=== PATIENT | male | born 1955 | race Caucasian/White ===

== ENCOUNTER 2019-08-19 18:31 | Emergency (ER) | payer MEDICAID ==
[~2019-08-19] VITALS: Ht 175.3 cm; Wt 90.0 kg
[2019-08-19] MEDS ORDERED: SODIUM CHLORIDE 0.9% 1,000 ML IV ONE (22:46)
[2019-08-19 23:22] LABS: HEMATOCRIT. 43.5 % (42.0-52.0); HEMOGLOBIN. 15.3 g/dL (14.0-18.0); MEAN CORPUSCULAR HEMOGLOBIN 34.4 pg (28.0-32.0); MEAN CORPUSCULAR VOLUME 97.6 fL (80.0-94.0); PLATELET 131 x1000/uL (130-400); RED BLOOD CELL COUNT 4.45 mill/uL (4.7-6.1); RED CELL DISTRIBUTION WIDTH 12.7 % (11.6-14.6)
[2019-08-19 23:26] LABS: CHLORIDE 105 mEq/L (98-107)
[2019-08-19 23:50] LABS: ETHANOL BLOOD 303 mg/dL
[2019-08-20 00:45] LABS: CLARITY URINE CLEAR (CLEAR); COLOR URINE YELLOW (YELLOW); KETONES URINE NEGATIVE (NEGATIVE); LEUKOCYTE ESTERASE URINE NEGATIVE (NEGATIVE); NITRITE URINE NEGATIVE (NEGATIVE); OCCULT BLOOD URINE NEGATIVE (NEGATIVE); PROTEIN URINE 2+ (NEGATIVE); SPECIFIC GRAVITY URINE 1.009 (1.005-1.030); UROBILINOGEN URINE 0.2 E.U./dL (0.2-1.0)
[2019-08-20 01:06] LABS: *AMPHETAMINES SCREEN URINE NEGATIVE (NEGATIVE); *BARBITURATES SCREEN URINE NEGATIVE (NEGATIVE); *BENZODIAZEPINES SCREEN URINE NEGATIVE (NEGATIVE); *COCAINE SCREEN URINE NEGATIVE (NEGATIVE); CANNABINOID URINE SCREEN NEGATIVE (NEGATIVE)
[2019-08-20 01:07] LABS: METHADONE URINE SCREEN NEGATIVE (NEGATIVE); OPIATES URINE SCREEN NEGATIVE (NEGATIVE); PHENCYCLIDINE URINE SCREEN NEGATIVE (NEGATIVE)
[2019-08-20 02:07] LABS: PLATELET ESTIMATE NORMAL
[2019-08-20] MEDS ORDERED: ONDANSETRON HCL 4MG/2ML INJ IV STA (03:58)
[2019-08-20 05:00] VITALS: BP 154/83
== END 2019-08-20 05:47 | disposition home or self-care (01) ==
LOC: EDBD 18:31 → ER 18:31
DX: F10.129 Alcohol abuse with intoxication, unspecified (principal); Y90.8 Blood alcohol level of 240 mg/100 ml or more; I11.0 Hypertensive heart disease with heart failure; I50.9 Heart failure, unspecified; E11.9 Type 2 diabetes mellitus without complications; R32 Unspecified urinary incontinence; R74.0 Nonspecific elevation of levels of transaminase and lactic acid dehydrogenase [LDH]; Z91.81 History of falling
CPT/HCPCS: 36415; 70450; 80053; 80305; 80320; 81003; 82962; 85025; 96361; 96374; 99284; J2405; J7030; Z7610; G0480

== ENCOUNTER 2019-09-08 16:23 | Emergency (ER) | payer MEDICAID ==
[~2019-09-08] VITALS: Ht 170.2 cm; Wt 90.0 kg
[2019-09-08 18:48] LABS: BASOPHILS % 2.3 % (0.0-2.0); EOSINOPHILS % 1.2 % (0.0-5.0); HEMATOCRIT. 39.4 % (42.0-52.0); HEMOGLOBIN. 13.9 g/dL (14.0-18.0); LYMPHOCYTES % 44.4 % (20.0-50.0); MEAN CORPUSCULAR VOLUME 96.6 fL (80.0-94.0); MEAN PLATELET VOLUME 9.2 fl (7.4-10.4); NEUTROPHILS % 46.1 % (40.0-76.0); RED BLOOD CELL COUNT 4.08 mill/uL (4.7-6.1); RED CELL DISTRIBUTION WIDTH 12.6 % (11.6-14.6)
[2019-09-08 19:00] LABS: CHLORIDE 99 mEq/L (98-107)
[2019-09-08 19:05] LABS: ETHANOL BLOOD 273 mg/dL
[2019-09-08 19:24] LABS: CLARITY URINE CLEAR (CLEAR); COLOR URINE YELLOW (YELLOW); KETONES URINE NEGATIVE (NEGATIVE); LEUKOCYTE ESTERASE URINE NEGATIVE (NEGATIVE); NITRITE URINE NEGATIVE (NEGATIVE); OCCULT BLOOD URINE TRACE (NEGATIVE); PH URINE 5.5 (4.5-8.0); PROTEIN URINE 1+ (NEGATIVE); SPECIFIC GRAVITY URINE 1.003 (1.005-1.030); UROBILINOGEN URINE 0.2 E.U./dL (0.2-1.0)
[2019-09-08 19:42] LABS: *AMPHETAMINES SCREEN URINE NEGATIVE (NEGATIVE); *BARBITURATES SCREEN URINE NEGATIVE (NEGATIVE); *BENZODIAZEPINES SCREEN URINE NEGATIVE (NEGATIVE)
[2019-09-08 19:43] LABS: *COCAINE SCREEN URINE NEGATIVE (NEGATIVE); CANNABINOID URINE SCREEN NEGATIVE (NEGATIVE); OPIATES URINE SCREEN NEGATIVE (NEGATIVE); PHENCYCLIDINE URINE SCREEN NEGATIVE (NEGATIVE)
[2019-09-08 19:45] LABS: METHADONE URINE SCREEN NEGATIVE (NEGATIVE)
[2019-09-08] MEDS ORDERED: ACETAMINOPHEN 500MG TABLET PO NR (20:00)
[2019-09-09 15:54] VITALS: BP 127/60
[2019-09-09 22:43] LABS: PLATELET 47 x1000/uL (130-400)
== END 2019-09-10 07:24 | disposition home or self-care (01) ==
LOC: ER 16:23
DX: R51 Headache (principal); F10.229 Alcohol dependence with intoxication, unspecified; Y90.0 Blood alcohol level of less than 20 mg/100 ml; E11.9 Type 2 diabetes mellitus without complications; I10 Essential (primary) hypertension
CPT/HCPCS: 36415; 80053; 80305; 80320; 81003; 82962; 85025; 99284; G0480

== ENCOUNTER 2019-10-12 19:44 | Emergency (ER) | payer MEDICAID ==
[~2019-10-12] VITALS: Ht 180.3 cm; Wt 90.0 kg
[2019-10-12 19:51] VITALS: BP 138/72
== END 2019-10-12 21:40 | disposition left against medical advice (07) ==
LOC: ER 19:44
DX: F10.129 Alcohol abuse with intoxication, unspecified (principal); Y90.9 Presence of alcohol in blood, level not specified
CPT/HCPCS: 99283

== ENCOUNTER 2019-11-05 19:23 | Emergency (ER) | payer MEDICARE, MEDICAID ==
[~2019-11-05] VITALS: Ht 170.2 cm; Wt 75.0 kg
[2019-11-05 23:11] LABS: CHLORIDE 98 mEq/L (98-107)
[2019-11-05 23:27] LABS: ETHANOL BLOOD 348 mg/dL
[2019-11-05 23:43] LABS: *AMPHETAMINES SCREEN URINE NEGATIVE (NEGATIVE); *BARBITURATES SCREEN URINE NEGATIVE (NEGATIVE); *BENZODIAZEPINES SCREEN URINE NEGATIVE (NEGATIVE); *COCAINE SCREEN URINE NEGATIVE (NEGATIVE); METHADONE URINE SCREEN NEGATIVE (NEGATIVE); OPIATES URINE SCREEN NEGATIVE (NEGATIVE)
[2019-11-05 23:44] LABS: CANNABINOID URINE SCREEN NEGATIVE (NEGATIVE); PHENCYCLIDINE URINE SCREEN NEGATIVE (NEGATIVE)
[2019-11-06 00:08] LABS: BASOPHILS % 2.2 % (0.0-2.0); EOSINOPHILS % 0.7 % (0.0-5.0); HEMATOCRIT. 47.1 % (42.0-52.0); HEMOGLOBIN. 16.7 g/dL (14.0-18.0); LYMPHOCYTES % 49.3 % (20.0-50.0); MEAN CORPUSCULAR HEMOGLOBIN 34.7 pg (28.0-32.0); MEAN CORPUSCULAR VOLUME 97.6 fL (80.0-94.0); MEAN PLATELET VOLUME 9.4 fl (7.4-10.4); MONOCYTES % 3.9 % (2.0-8.0); NEUTROPHILS % 43.9 % (40.0-76.0); PLATELET 87 x1000/uL (130-400); RED BLOOD CELL COUNT 4.83 mill/uL (4.7-6.1); RED CELL DISTRIBUTION WIDTH 13.5 % (11.6-14.6)
[2019-11-06 04:00] VITALS: BP 133/99
== END 2019-11-06 07:00 | disposition home or self-care (01) ==
LOC: ER 19:23
DX: S30.0XXA Contusion of lower back and pelvis, initial encounter (principal); E11.65 Type 2 diabetes mellitus with hyperglycemia; I10 Essential (primary) hypertension; F10.229 Alcohol dependence with intoxication, unspecified; W18.39XA Other fall on same level, initial encounter; Y93.89 Activity, other specified; Y92.89 Other specified places as the place of occurrence of the external cause; Y99.8 Other external cause status; Y90.8 Blood alcohol level of 240 mg/100 ml or more
CPT/HCPCS: 36415; 72100; 80053; 80305; 80320; 85025; 99284; G0480

== ENCOUNTER 2020-05-09 08:09 | Inpatient (IN) | payer MEDICARE, MEDICAID ==
[~2020-05-09] VITALS: Ht 180.3 cm; Wt 72.6 kg
[2020-05-09] MEDS ORDERED: SODIUM CHLORIDE 0.9% 1,000 ML IV ONE ×2 (08:21→10:22)
[2020-05-09 09:00] LABS: BG BASE EXCESS -1.1 mmol/L (-2.0-2.0); BG CARBOXYHEMOGLOBIN 0.7 % (0.5-1.5); BG DEOXYHEMOGLOBIN 2.9 % (0.0-5.0); BG FRACTION INSPIRED OXYGEN 21; BG HCO3 ACT 22.5 mmol/L (22.0-26.0); BG METHEMOGLOBIN 0.3 % (0.0-1.5); BG OXYGEN SATURATION 97.1 % (92.0-98.5); BG OXYHEMOGLOBIN 96.1 % (94.0-97.0); BG PCO2 34.4 mmHg (35.0-45.0); BG PH 7.434 (7.350-7.450); BG PO2 91.3 mmHg (75.0-100.0); BG SAMPLE SITE RIGHT RADIAL; BG TOTAL HEMOGLOBIN 13.6 g/dL (12.0-18.0); BG VENT MODE RA
[2020-05-09 09:16] LABS: BASOPHILS % 0.8 % (0.0-2.0); EOSINOPHILS % 1.7 % (0.0-5.0); HEMATOCRIT. 37.9 % (42.0-52.0); HEMOGLOBIN. 13.2 g/dL (14.0-18.0); LYMPHOCYTES % 19.6 % (20.0-50.0); MEAN CORPUSCULAR HEMOGLOBIN 30.8 pg (28.0-32.0); MEAN CORPUSCULAR VOLUME 88.3 fL (80.0-94.0); MEAN PLATELET VOLUME 9.7 fl (7.4-10.4); MONOCYTES % 5.1 % (2.0-8.0); NEUTROPHILS % 72.8 % (40.0-76.0); PLATELET 118 x1000/uL (130-400); RED BLOOD CELL COUNT 4.29 mill/uL (4.7-6.1); RED CELL DISTRIBUTION WIDTH 15.2 % (11.6-14.6)
[2020-05-09 09:23] LABS: CHLORIDE 93 mEq/L (98-107)
[2020-05-09 09:26] LABS: ETHANOL BLOOD < 10 mg/dL
[2020-05-09 09:35] LABS: CLARITY URINE CLEAR (CLEAR); COLOR URINE YELLOW (YELLOW); KETONES URINE 1+ (NEGATIVE); LEUKOCYTE ESTERASE URINE 1+ (NEGATIVE); NITRITE URINE NEGATIVE (NEGATIVE); OCCULT BLOOD URINE 2+ (NEGATIVE); PH URINE 6.5 (4.5-8.0); PROTEIN URINE TRACE (NEGATIVE); SPECIFIC GRAVITY URINE 1.023 (1.005-1.030); UROBILINOGEN URINE 0.2 E.U./dL (0.2-1.0)
[2020-05-09 09:35] LABS: PROTHROMBIN TIME 10.8 sec (9.6-11.0)
[2020-05-09] MEDS ORDERED: GUAIFENESIN 200MG/10ML SUGAR FREE UDC PO PRN (12:00)
[2020-05-09] MEDS ORDERED: IPRATROPIUM/ALBUTEROL 0.5-3(2.5)MG/3ML NEB NEB PRN (12:00)
[2020-05-09] MEDS ORDERED: DOCUSATE SODIUM 100MG CAPSULE PO PRN (12:00)
[2020-05-09] MEDS ORDERED: ONDANSETRON HCL 4MG/2ML INJ IV PRN (12:00)
[2020-05-09] MEDS ORDERED: NITROGLYCERIN 0.4MG TABLET SL SL PRN (12:00)
[2020-05-09] MEDS ORDERED: LEVOFLOXACIN 500MG PREMIX 100 ML IV SCH (12:00)
[2020-05-09] MEDS ORDERED: ACETAMINOPHEN 325MG TABLET PO PRN ×2 (12:00)
[2020-05-09] MEDS ORDERED: DEXTROSE 50% WATER 50ML SYRINGE IV PRN (12:00)
[2020-05-09] MEDS ORDERED: MAGNESIUM/ALUMINUM HYDROXIDE/SIMETHICONE 30ML UDC PO PRN (12:00)
[2020-05-09] MEDS ORDERED: KETOROLAC 15MG/ML VIAL IV PRN (12:00)
[2020-05-09] MEDS ORDERED: CLONIDINE 0.1MG TABLET PO PRN (12:00)
[2020-05-09] MEDS ORDERED: TRAMADOL 50MG TABLET PO PRN (12:00)
[2020-05-09] MEDS: SODIUM CHLORIDE 0.9% 1,000 ML IV SCH (12:39)
[2020-05-09] MEDS: ZINC SULFATE 220 MG ( 50 ) CAPSULE PO SCH (12:40)
[2020-05-09] MEDS: INSULIN LISPRO 100 UNITS/ML SUBCUT SCH ×5 (12:40→22:09)
[2020-05-09] MEDS: ASPIRIN 325MG EC TABLET PO SCH (12:40)
[2020-05-09] MEDS: ENOXAPARIN 40MG/0.4ML SYR SUBCUT SCH (12:59)
[2020-05-09] MEDS ORDERED: CEFTRIAXONE 1 G PREMIX 50 ML IV SCH (13:00)
[2020-05-09 13:23] LABS: TOTAL IRON BINDING CAPACITY 292 ug/dL (250-450)
[2020-05-09] MEDS: FAMOTIDINE 20MG TABLET PO SCH ×2 (13:37→22:09)
[2020-05-09 14:04] LABS: FOLIC ACID (FOLATE) SERUM 17.7 ng/mL (>5.38)
[2020-05-09] MEDS: ASCORBIC ACID 500 MG TABLET PO SCH ×2 (14:28→22:09)
[2020-05-09] MEDS: BLOOD SUGAR DIAGNOSTIC STRIP TEST SCH ×3 (14:37→21:00)
[2020-05-09 15:28] LABS: CREATINE KINASE MB FRACTION 3.3 ng/mL (0.5-3.6)
[2020-05-09] MEDS ORDERED: ZOLPIDEM TARTRATE 5MG TABLET PO PRN (20:00)
[2020-05-09] MEDS ORDERED: INSULIN GLARGINE UD 100 UNITS/ML SYR SUBCUT SCH (22:00)
[2020-05-10] MEDS: SODIUM CHLORIDE 0.9% 1,000 ML IV SCH ×3 (00:11→18:15)
[2020-05-10] MEDS: INSULIN GLARGINE UD 100 UNITS/ML SYR SUBCUT SCH ×2 (00:34→22:42)
[2020-05-10 00:59] VITALS: BP 125/62
[2020-05-10 04:00] VITALS: BP 130/71
[2020-05-10 06:17] LABS: CHLORIDE 106 mEq/L (98-107)
[2020-05-10] MEDS: BLOOD SUGAR DIAGNOSTIC STRIP TEST SCH ×4 (06:22→21:00)
[2020-05-10] MEDS: INSULIN LISPRO 100 UNITS/ML SUBCUT SCH ×7 (06:23→22:41)
[2020-05-10 06:27] LABS: LDL CHOLESTEROL 116 mg/dL (5-100); PHOSPHORUS 2.8 mg/dL (2.5-4.9)
[2020-05-10 06:28] LABS: CREATINE KINASE MB FRACTION 1.3 ng/mL (0.5-3.6)
[2020-05-10 06:29] LABS: BASOPHILS % 0.6 % (0.0-2.0); CREATINE KINASE 123 IU/L (39-308); EOSINOPHILS % 5.7 % (0.0-5.0); HDL CHOLESTEROL 64 mg/dL (40-59); HEMATOCRIT. 36.7 % (42.0-52.0); HEMOGLOBIN. 12.8 g/dL (14.0-18.0); LYMPHOCYTES % 24.2 % (20.0-50.0); MEAN CORPUSCULAR HEMOGLOBIN 30.7 pg (28.0-32.0); MEAN CORPUSCULAR VOLUME 88.3 fL (80.0-94.0); MEAN PLATELET VOLUME 10.2 fl (7.4-10.4); MONOCYTES % 5.5 % (2.0-8.0); PLATELET 111 x1000/uL (130-400); RED BLOOD CELL COUNT 4.16 mill/uL (4.7-6.1); RED CELL DISTRIBUTION WIDTH 15.6 % (11.6-14.6)
[2020-05-10 08:00] VITALS: BP 100/56
[2020-05-10] MEDS ORDERED: PNEUMOCOCCAL 23-VAL P-SAC VAC 0.5 ML IM ONE (08:00)
[2020-05-10] MEDS: ASPIRIN 325MG EC TABLET PO SCH (09:37)
[2020-05-10] MEDS: ASCORBIC ACID 500 MG TABLET PO SCH ×2 (09:37→22:40)
[2020-05-10] MEDS: ZINC SULFATE 220 MG ( 50 ) CAPSULE PO SCH (09:37)
[2020-05-10] MEDS: ENOXAPARIN 40MG/0.4ML SYR SUBCUT SCH (09:38)
[2020-05-10] MEDS: FAMOTIDINE 20MG TABLET PO SCH ×2 (09:39→22:40)
[2020-05-10] MEDS: LEVOFLOXACIN 500MG PREMIX 100 ML IV SCH (11:24)
[2020-05-10 11:53] VITALS: BP 117/69
[2020-05-10] MEDS: CEFTRIAXONE 1,000 MG in DEXTROSE 5% WATER 50 ML IV SCH (14:00)
[2020-05-10] MEDS: TAMSULOSIN HCL 0.4MG SR CAPSULE PO SCH ×2 (14:01→22:40)
[2020-05-10] MEDS: DUTASTERIDE 0.5MG CAPSULE PO SCH (14:01)
[2020-05-10 16:00] VITALS: BP 109/61
[2020-05-10 18:08] LABS: *AMPHETAMINES SCREEN URINE NEGATIVE (NEGATIVE); *BARBITURATES SCREEN URINE NEGATIVE (NEGATIVE); *BENZODIAZEPINES SCREEN URINE PRESUMTIVE POSITIVE (NEGATIVE); *COCAINE SCREEN URINE NEGATIVE (NEGATIVE); METHADONE URINE SCREEN NEGATIVE (NEGATIVE); OPIATES URINE SCREEN NEGATIVE (NEGATIVE)
[2020-05-10 18:09] LABS: CANNABINOID URINE SCREEN NEGATIVE (NEGATIVE); PHENCYCLIDINE URINE SCREEN NEGATIVE (NEGATIVE)
[2020-05-10 20:00] VITALS: BP 121/74
[2020-05-11] VITALS: BP 127/75
[2020-05-11 04:00] VITALS: BP 128/69
[2020-05-11] MEDS: SODIUM CHLORIDE 0.9% 1,000 ML IV SCH ×2 (04:49→15:08)
[2020-05-11] MEDS: BLOOD SUGAR DIAGNOSTIC STRIP TEST SCH ×4 (06:26→20:07)
[2020-05-11] MEDS: INSULIN LISPRO 100 UNITS/ML SUBCUT SCH ×7 (06:32→21:00)
[2020-05-11 08:00] VITALS: BP 167/74
[2020-05-11] MEDS: DUTASTERIDE 0.5MG CAPSULE PO SCH (08:59)
[2020-05-11] MEDS: ASPIRIN 325MG EC TABLET PO SCH (08:59)
[2020-05-11] MEDS: ENOXAPARIN 40MG/0.4ML SYR SUBCUT SCH (08:59)
[2020-05-11] MEDS: TAMSULOSIN HCL 0.4MG SR CAPSULE PO SCH ×2 (09:00→20:11)
[2020-05-11] MEDS: FAMOTIDINE 20MG TABLET PO SCH ×2 (09:00→20:11)
[2020-05-11] MEDS: ASCORBIC ACID 500 MG TABLET PO SCH ×2 (09:00→20:11)
[2020-05-11] MEDS: ZINC SULFATE 220 MG ( 50 ) CAPSULE PO SCH (09:00)
[2020-05-11] MEDS ORDERED: POTASSIUM CHLORIDE 20MEQ/PACKET PO NR (10:15)
[2020-05-11] MEDS: LEVOFLOXACIN 500MG PREMIX 100 ML IV SCH (11:32)
[2020-05-11 11:58] VITALS: BP 125/71
[2020-05-11] MEDS ORDERED: MAGNESIUM 2 G PREMIX 50 ML IV NR (12:00)
[2020-05-11] MEDS: CEFTRIAXONE 1,000 MG in DEXTROSE 5% WATER 50 ML IV SCH (15:08)
[2020-05-11 16:00] VITALS: BP 135/76
[2020-05-11 20:00] VITALS: BP 121/73
[2020-05-11] MEDS: INSULIN GLARGINE UD 100 UNITS/ML SYR SUBCUT SCH (21:39)
[2020-05-12] VITALS (7 sets, daily range): BP systolic 117–165; BP diastolic 56–87
[2020-05-12] MEDS: SODIUM CHLORIDE 0.9% 1,000 ML IV SCH ×3 (01:36→20:15)
[2020-05-12] MEDS: BLOOD SUGAR DIAGNOSTIC STRIP TEST SCH ×4 (06:08→21:24)
[2020-05-12] MEDS: INSULIN LISPRO 100 UNITS/ML SUBCUT SCH ×7 (06:12→21:00)
[2020-05-12 06:26] LABS: BASOPHILS % 0.8 % (0.0-2.0); HEMATOCRIT. 36.1 % (42.0-52.0); HEMOGLOBIN. 12.3 g/dL (14.0-18.0); LYMPHOCYTES % 40.7 % (20.0-50.0); MEAN CORPUSCULAR HEMOGLOBIN 30.6 pg (28.0-32.0); MEAN CORPUSCULAR VOLUME 89.4 fL (80.0-94.0); MEAN PLATELET VOLUME 9.7 fl (7.4-10.4); MONOCYTES % 7.5 % (2.0-8.0); PLATELET 119 x1000/uL (130-400); RED BLOOD CELL COUNT 4.03 mill/uL (4.7-6.1)
[2020-05-12 06:49] LABS: CHLORIDE 106 mEq/L (98-107)
[2020-05-12 07:03] LABS: PHOSPHORUS 3.2 mg/dL (2.5-4.9)
[2020-05-12] MEDS: TAMSULOSIN HCL 0.4MG SR CAPSULE PO SCH ×2 (10:07→21:23)
[2020-05-12] MEDS: DUTASTERIDE 0.5MG CAPSULE PO SCH (10:07)
[2020-05-12] MEDS: ASPIRIN 325MG EC TABLET PO SCH (10:07)
[2020-05-12] MEDS: ASCORBIC ACID 500 MG TABLET PO SCH ×2 (10:08→21:24)
[2020-05-12] MEDS: ZINC SULFATE 220 MG ( 50 ) CAPSULE PO SCH (10:08)
[2020-05-12] MEDS: ENOXAPARIN 40MG/0.4ML SYR SUBCUT SCH (10:08)
[2020-05-12] MEDS: FAMOTIDINE 20MG TABLET PO SCH ×2 (10:08→21:23)
[2020-05-12] MEDS: LEVOFLOXACIN 500MG TABLET PO SCH (11:23)
[2020-05-12] MEDS: CEFTRIAXONE 1,000 MG in DEXTROSE 5% WATER 50 ML IV SCH (13:51)
[2020-05-12] MEDS: INSULIN GLARGINE UD 100 UNITS/ML SYR SUBCUT SCH (23:26)
[2020-05-13] VITALS: BP 148/90
[2020-05-13 04:00] VITALS: BP 135/74
[2020-05-13] MEDS: SODIUM CHLORIDE 0.9% 1,000 ML IV SCH (06:15)
[2020-05-13] MEDS: INSULIN LISPRO 100 UNITS/ML SUBCUT SCH ×4 (06:48→12:27)
[2020-05-13] MEDS: BLOOD SUGAR DIAGNOSTIC STRIP TEST SCH ×2 (06:48→12:28)
[2020-05-13 08:00] VITALS: BP 128/72
[2020-05-13] MEDS: FAMOTIDINE 20MG TABLET PO SCH (09:00)
[2020-05-13] MEDS: LEVOFLOXACIN 500MG TABLET PO SCH (10:30)
[2020-05-13] MEDS: DUTASTERIDE 0.5MG CAPSULE PO SCH (10:30)
[2020-05-13] MEDS: ZINC SULFATE 220 MG ( 50 ) CAPSULE PO SCH (10:30)
[2020-05-13] MEDS: ASCORBIC ACID 500 MG TABLET PO SCH (10:31)
[2020-05-13] MEDS: TAMSULOSIN HCL 0.4MG SR CAPSULE PO SCH (10:31)
[2020-05-13] MEDS: ENOXAPARIN 40MG/0.4ML SYR SUBCUT SCH (10:31)
[2020-05-13] MEDS: ASPIRIN 325MG EC TABLET PO SCH (10:33)
[2020-05-13 12:00] VITALS: BP 124/69
[2020-05-13 14:34] VITALS: BP 124/69
[2020-05-13] MEDS ORDERED: MEROPENEM 1000MG in NORMAL SALINE 100ML IV SCH (15:00)
== END 2020-05-13 15:56 | DRG 871 ==
LOC: ER 08:09 → 8WST 10:23 → SUPCPDRO 11:46 → ENRESERV 21:11
PROVIDERS: ADMIT Internal Medicine; ATTEND Internal Medicine
DX: A41.9 Sepsis, unspecified organism (principal); E11.00 Type 2 diabetes mellitus with hyperosmolarity without nonketotic hyperglycemic-hyperosmolar coma (NKHHC); E87.1 Hypo-osmolality and hyponatremia; N39.0 Urinary tract infection, site not specified; S01.111A Laceration without foreign body of right eyelid and periocular area, initial encounter; I10 Essential (primary) hypertension; W01.0XXA Fall on same level from slipping, tripping and stumbling without subsequent striking against object, initial encounter; F10.10 Alcohol abuse, uncomplicated; Y90.9 Presence of alcohol in blood, level not specified; S06.0X0A Concussion without loss of consciousness, initial encounter; Z20.828 Contact with and (suspected) exposure to other viral communicable diseases; D63.8 Anemia in other chronic diseases classified elsewhere; Y93.89 Activity, other specified; Y92.89 Other specified places as the place of occurrence of the external cause; Y99.8 Other external cause status
CPT/HCPCS: 36415; 36600; 71045; 80053; 80061; 80305; 80320; 81003; 82010; 82375; 82550; 82553; 82607; 82728; 82746; 82805; 82962; 83036; 83540; 83550; 83605; 83615; 83735; 84100; 84145; 84484; 85025; 85379; 87077; 87186; 87635; 93005; 93306; 93970; 97116; 97162; 97166; 97530; 97535; 99285; J0696; J1650; J1815; J1956; J2185; J3475; J7030; J7060; G0480

== ENCOUNTER 2020-10-25 13:47 | Emergency (ER) | payer MEDICARE, MEDICAID ==
[~2020-10-25] VITALS: Ht 170.2 cm; Wt 87.0 kg
[2020-10-25 15:37] LABS: CHLORIDE 102 mEq/L (98-107)
[2020-10-25 15:42] LABS: PROTHROMBIN TIME 10.4 sec (9.6-11.0)
[2020-10-25 16:00] LABS: ETHANOL BLOOD 302 mg/dL
[2020-10-25] MEDS ORDERED: SODIUM CHLORIDE 0.9% 1,000 ML IV ONE (16:00)
[2020-10-25 17:49] LABS: BASOPHILS % 1.6 % (0.0-2.0); EOSINOPHILS % 0.7 % (0.0-5.0); HEMATOCRIT. 42.1 % (42.0-52.0); HEMOGLOBIN. 14.5 g/dL (14.0-18.0); LYMPHOCYTES % 38.1 % (20.0-50.0); MEAN CORPUSCULAR HEMOGLOBIN 33.4 pg (28.0-32.0); MEAN CORPUSCULAR VOLUME 96.9 fL (80.0-94.0); MEAN PLATELET VOLUME 7.4 fl (7.4-10.4); MONOCYTES % 6.1 % (2.0-8.0); NEUTROPHILS % 53.5 % (40.0-76.0); PLATELET 110 x1000/uL (130-400); RED BLOOD CELL COUNT 4.35 mill/uL (4.7-6.1); RED CELL DISTRIBUTION WIDTH 14.5 % (11.6-14.6)
[2020-10-26 03:21] VITALS: BP 164/106
== END 2020-10-26 04:45 | disposition home or self-care (01) ==
LOC: ER 13:47
DX: R51.9 Headache, unspecified (principal); M25.511 Pain in right shoulder; F10.229 Alcohol dependence with intoxication, unspecified; Y90.8 Blood alcohol level of 240 mg/100 ml or more; I10 Essential (primary) hypertension; E11.9 Type 2 diabetes mellitus without complications; W01.0XXA Fall on same level from slipping, tripping and stumbling without subsequent striking against object, initial encounter; Y93.89 Activity, other specified; Y92.488 Other paved roadways as the place of occurrence of the external cause
CPT/HCPCS: 36415; 70450; 73030; 80053; 80320; 85025; 85610; 86850; 86900; 86901; 93005; 96360; 96361; 99285; J7030; G0480

== ENCOUNTER 2021-03-27 19:52 | Emergency (ER) | payer MEDICARE, MEDICAID ==
[~2021-03-27] VITALS: Ht 172.7 cm; Wt 88.0 kg
[2021-03-27 19:56] VITALS: BP 134/84
[2021-03-27] MEDS ORDERED: FOLIC ACID 1 MG, THIAMINE HCL 100 MG, MVI, ADULT NO.1 10 ML in DEXTROSE 5% WATER 1,000 ML IV ONE (21:15)
== END 2021-03-27 21:13 | disposition home or self-care (01) ==
LOC: ER 19:52
DX: F10.229 Alcohol dependence with intoxication, unspecified (principal); S01.511A Laceration without foreign body of lip, initial encounter; E11.8 Type 2 diabetes mellitus with unspecified complications; I10 Essential (primary) hypertension; Y90.9 Presence of alcohol in blood, level not specified; X58.XXXA Exposure to other specified factors, initial encounter; Y93.89 Activity, other specified; Y92.89 Other specified places as the place of occurrence of the external cause; Z79.4 Long term (current) use of insulin; Z79.84 Long term (current) use of oral hypoglycemic drugs
CPT/HCPCS: 99283; J3411; J3490; J7070

== ENCOUNTER 2021-05-06 18:40 | Emergency (ER) | payer MEDICARE, MEDICAID ==
[~2021-05-06] VITALS: Ht 177.8 cm; Wt 82.0 kg
[2021-05-06 18:45] VITALS: BP 118/68
[2021-05-06] MEDS ORDERED: SODIUM CHLORIDE 0.9% 1,000 ML IV ONE (19:00)
[2021-05-06 20:03] LABS: EOSINOPHILS % 3.6 % (0.0-5.0); HEMATOCRIT. 37.2 % (42.0-52.0); HEMOGLOBIN. 13.1 g/dL (14.0-18.0); LYMPHOCYTES % 43.2 % (20.0-50.0); MEAN CORPUSCULAR HEMOGLOBIN 32.6 pg (28.0-32.0); MEAN CORPUSCULAR VOLUME 92.2 fL (80.0-94.0); MEAN PLATELET VOLUME 9.3 fl (7.4-10.4); MONOCYTES % 5.8 % (2.0-8.0); NEUTROPHILS % 46.4 % (40.0-76.0); PLATELET 102 x1000/uL (130-400); RED BLOOD CELL COUNT 4.03 mill/uL (4.7-6.1); RED CELL DISTRIBUTION WIDTH 15.4 % (11.6-14.6)
[2021-05-06 20:08] LABS: CHLORIDE 100 mEq/L (98-107)
[2021-05-06 20:15] LABS: ETHANOL BLOOD 289 mg/dL
== END 2021-05-06 20:00 | disposition left against medical advice (07) ==
LOC: ER 18:40
DX: F10.129 Alcohol abuse with intoxication, unspecified (principal); Y90.9 Presence of alcohol in blood, level not specified
CPT/HCPCS: 36415; 80053; 80307; 80320; 80329; 85025; 99281; J7030; G0480